=== PATIENT | male | born 1970 | race Caucasian/White ===

== ENCOUNTER 2020-09-03 11:22 | Emergency (ER) | payer SELFPAY ==
--- NOTE | 2020-09-03 12:05 | RAD ---
RIGHT SHOULDER 3 VIEWS: Date: 09/03/2020 HISTORY: Fall with injury. FINDINGS: No fracture or dislocation. AC joint width is upper normal at 7-8 mm. Alignment is normal. Assess for AC injury. IMPRESSION: No fracture or dislocation. AC joint width is upper normal. Recommend clinical correlation. POS: JUVENALW
--- NOTE | 2020-09-03 12:07 | RAD ---
LEFT WRIST 3 VIEWS: Date; 09/03/2020 HISTORY: Fall with injury. FINDINGS: Mild degenerative change at the first carpometacarpal joint. The carpals appear normally aligned. No evidence of fracture. IMPRESSION: No acute findings. POS: JUVENALW
== END 2020-09-03 12:46 | disposition home or self-care (01) ==
LOC: MADERS 11:22
DX: S63.502A Unspecified sprain of left wrist, initial encounter (principal); M25.511 Pain in right shoulder; I10 Essential (primary) hypertension; F17.210 Nicotine dependence, cigarettes, uncomplicated; W11.XXXA Fall on and from ladder, initial encounter
CPT/HCPCS: 29125